=== PATIENT | male | born 1990 | race Caucasian/White ===

== ENCOUNTER 2025-04-06 14:03 | Outpatient (AMB) | payer OTHER, SELFPAY ==
--- NOTE | 2025-04-06 14:09 | A.OFFVIS_ITS ---
Intake Visit Reasons: cont headaches and abnormal MRI HPI Comments Details: The patient is a 35 year old male presenting with progressively worsening violent dizzy episodes, which began about a year ago. The first extreme episode occurred in April of this year, which prompted him to seek care. The episodes are characterized by sudden onset of vertigo, described as the entire world visually spinning, leading to a loss of balance and the need to immediately get on the floor. These episodes last for about 10-15 minutes and are associated with a sensation of the whole body overheating, sweating, nausea, photosensitivity, and difficulty thinking clearly. A witness confirms that during these events, the patient appears distressed, his eyes shift as if spinning, and his responses are initially slow and not always coherent. Following the acute vertigo, a feeling of lightheadedness and floatiness persists for several hours. The patient reports no incontinence or physical injury during the events, but does experience frequent agata vu. Associated symptoms include blurry vision, worsening memory issues with loss of train of thought, and progressing numbness in the pelvic region over the past couple of months. He also reports progressively worsening constipation and unspecified bladder issues, but denies headaches with these episodes. He does have weekly headaches, which are sometimes associated with insomnia. Past medical history is significant for a head injury with loss of consciousness before the age of [age] after falling down a flight of stone stairs. He has no known history of seizures. A brain MRI performed three months ago reportedly showed white matter buildup. His current medications include bupropion for depression, albuterol, Cymbalta, and meclizine for the dizziness. He has known allergies to amoxicillin and penicillin. 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 Review of Systems Narrative - Neurological: Reports episodes of severe vertigo with loss of balance, frequent agata vu, and occasional periods of altered awareness ( not there ). - Reports worsening memory, losing train of thought, and progressive numbness in the pelvic region. - Reports weekly headaches. - Denies olfactory or gustatory hallucinations. - Eyes: Reports blurry vision and photosensitivity, especially during dizzy episodes. - Gastrointestinal: Reports nausea during dizzy spells and progressively worsening constipation. - Genitourinary: Reports unspecified bladder issues. - Denies incontinence. - Constitutional: Reports sensation of body overheating and sweating during dizzy episodes. - Psychiatric: Reports feeling of agata vu frequently. Physical Exam Neuro Other: Mental Status: Alert and oriented to person, place, and time. Normal attention. Normal spontaneous speech, fluency, and comprehension. No obvious issues with mood and memory. Affect is appropriate. Cranial Nerves: CN II: Visual rogers full to confrontation, visual acuity intact. CN III, IV, : Pupils equal, round, reactive to light and accommodation. Extraocular movements are normal. CN V: Facial sensation is normal. CN VII: Facial movements symmetrical. CN VIII: Hearing intact to bedside conversation is normal. CN IX, X: Palate elevates symmetrically. CN XI: Shoulder shrug and head turn symmetrical. CN XII: Tongue midline without atrophy or fasciculations. Motor: Bulk and tone normal in all extremities. No significant muscle weakness in arms and legs. No drift. Reflexes: Deep tendon reflexes 2+ and symmetric. Plantar response down-going bilaterally. Coordination: [id number] and ehsu-ux-[id number] testing normal. No dysmetria. Gait and Station: No obvious gait abnormality. No ataxia or instability. Sensory: Intact to light touch, pinprick, and vibration. Romberg is negative. Extrapyramidal: Full facial expressions and blinking. No rigidity. Movements are appropriate with no tremor or abnormality. Speech: Normal; no dysarthria or tremor. Assessment & Plan Assessment & Plan (1) Seizure disorder: Code(s): G40.909 - Epilepsy, unspecified, not intractable, without status epilepticus Category: Medical (2) Migraine without aura: Code(s): G43.009 - Migraine without aura, not intractable, without status migrainosus Category: Medical Qualifiers: Intractability: not intractable Status migrainosus presence: without status migrainosus Qualified Code(s): G43.009 - Migraine without aura, not intractable, without status migrainosus Plan Impression: 1. Probably epileptic seizure disorder 2. Migraine without aura 3. Report of abnormal brain MRI though MRI CD was not here. Recommendations: 1. Reassurance and education 2. Electroencephalogram 3. Levetiracetam 500 mg twice a day 4. No driving and common sense precautions to avoid any accidents I explained to the patient that his severe dizzy episodes are most likely seizures and that he probably has epilepsy. I discussed that while his headaches are consistent with migraine, they are a separate issue and do not explain the seizures. I outlined the plan to obtain an EEG for diagnostic confirmation. I offered the option to start an anti-seizure medication immediately to control the symptoms, noting he would need to hold the dose the day before the EEG. I reassured him that epilepsy is a treatable seizure disorder, and the primary treatment is medication, not surgery. I mentioned that the findings on his MRI may be a trigger for the seizures, but the diagnosis and treatment would be the same even with a normal MRI. I provided strict instructions to avoid driving until his condition is properly diagnosed and controlled. Orders: Orders EEG Routine Today G40.909 - Epilepsy, unspecified, not intractable, without status epilepticus Medications: New levetiracetam 500 mg PO BID 180 tabs 1RF Coding Level of Care Code New Pt Level 4 (03726) Diagnoses Seizure disorder G40.909 Migraine without aura and without status migrainosus, not intractable G43.009 Intractability: not intractable Status migrainosus presence: without status migrainosus
--- OUTSIDE RECORDS SUMMARY | 2025-04-06 17:31 | XMS_ITS | Clinical Summary ---
Author Organization [address] [facility] Address [address] [place] [address] Phone Care Team Providers Care Radio Television Announcer Name Role Phone Milton Mckenzie DO Primary Care Provider [phone] Allergies Active Allergy Reactions Criticality Noted Date Comments Amoxicillin 08/24/2023 Cefaclor 08/24/2023 Penicillin 09/02/2024 Shellfish Derived High 09/02/2024 Medications buPROPion XL (WELLBUTRIN XL) 300 mg 24 hr tablet Take 1 tablet (300 mg total) by mouth 1 (one) time each day. 5 Active montelukast (SINGULAIR) 10 mg tablet Take 1 tablet (10 mg total) by mouth 1 (one) time each day. for 90 days 5 Active meclizine (ANTIVERT) 25 mg tablet Take 1 tablet (25 mg total) by mouth 3 (three) times a day if needed for dizziness or nausea. 5 Active loratadine (CLARITIN) 10 mg tablet Take 1 tablet (10 mg total) by mouth 1 (one) time each day. Active ProAir RespiClick 90 mcg/actuation aerosol powdr breath activated Inhale 1 puff by mouth every 4 (four) hours if needed (shortness of breath). 5 Active azelastine (ASTELIN) 137 mcg (0.1 %) nasal spray Administer 1 spray into each nostril 2 (two) times a day. Use in each nostril as directed Active cetirizine (ZyrTEC) 10 mg tablet Take 1 tablet (10 mg total) by mouth 1 (one) time each day. Active linaCLOtide (LINZESS) 72 mcg capsule Take 1 capsule (72 mcg total) by mouth 1 (one) time each day. 30 capsule 3 Active Social History Tobacco Use Types Packs/Day Years Used Date Smoking Tobacco: Never Smokeless Tobacco: Never Alcohol Use Standard Drinks/Week Comments Yes 0 (1 standard drink = 0.6 oz pur e alcohol) Sex and Gender Information Value Date Recorded Sex Assigned at Male 09/03/2024 3:25 PM EDT Legal Sex Male 11:47 PM EST Gender Identity Male 09/03/2024 3:25 PM EDT Sexual Orientation Straight 09/03/2024 3: 25 PM EDT Last Filed Vital Signs Vital Sign Reading Time Taken Comments Blood Pressure 112/82 09/02/2024 1:28 PM EDT Pulse 88 09/02/2024 1:28 PM EDT Temperature - - Respiratory Rate - - Oxygen Saturation 98% 09/02/2024 1:28 PM EDT Inhaled Oxygen Concentration - - Weight 79.3 kg (174 lb 12.8 oz) 09/02/2024 1:28 PM EDT Height 167.6 cm (5' 6 ) 09/02/2024 1:28 PM EDT Body Mass Index 28.21 09/02/2024 1:28 PM EDT Plan of Treatment Health Maintenance Due Date Last Done Comments Hepatitis B Vaccines (1 of 3 - 19+ 3-dose series) 2009 Pneumococcal Vaccine: Pediatrics (0 to 5 Years) and At-Risk Patients (6 to 49 Years) (1 of 2 - PCV) 2009 HPV Vaccines (1 - 3-dose SCD M series) 2017 Cholesterol Screening (Lipid Panel) 11/13/2023 HIV Screening 11/13/2023 Social Influencers of Health Screening 11/13/2023 Depression Screening 04/16/2024 COVID-19 Vaccine (4 - 2024-2 6 season) 2024 05/04/2021, 10/01/2020, 09/10/2020 Influenza Vaccine (#1) 2024 2, 03/24/2015, 01/14/2013 DTaP,Tdap,and Td Vaccines (4 - Td or Tdap) 07/01/2033 07/02/2023, 12/28/2019, 03/09/2007 RSV Immunization Adult Patients (1 - 1-dose 75+ series) 2065 Hepatitis C Screening Completed 05/20/2024 HIB Vaccines Aged Out No longer eligi ble based on patient's age to complete this topic Hepatitis A Vaccines Aged Out No long er eligible based on patient's age to complete this topic IPV Vaccines Aged Out No longer eligi ble based on patient's age to complete this topic MMR Vaccines Aged Out No longer eligi ble based on patient's age to complete this topic Meningococcal ACWY Vaccine Aged Out N o longer eligible based on patient's age to complete this topic Meningococcal B Vaccine Aged Out No l onger eligible based on patient's age to complete this topic RSV Immunization Patients Under 20 months Aged Out No longer eligible b ased on patient's age to complete this topic Varicella Vaccines Aged Out No longer eligible based on patient's age to complete this topic Procedures Procedure Name Priority Date/Time Associated Diagnosis Comments HEPATITIS C ANTIBODY Routine 05/20/2024 11:49 AM EST Polyuria Nocturia Vertigo Dizziness Insomnia from Last 3 Months or Most Recently Relevant to Health Maintenance Results * Hepatitis C antibody (05/20/2024 11:49 AM EST) Hepatitis C Antibody Negative Negative LAB CHEMISTRY METHOD 05/20/2024 5:19 PM EST [facility] Blood Venous blood specimen / Unknown Venipuncture / Unknown 05/20/2024 11:49 AM EST 05/20/2024 11:50 AM EST us Hernandez De La Fuente [employer] OPERATOR HELPER LAB BLOOD ORDERABLES Final Resul t [facility] [address] [place] [address], [place] [phone] from Last 3 Months or Most Recently Relevant to Health Maintenance Insurance [facility] PL[facility] Care Teams Radio Television Announcer Relationship Specialty Start Date End Date Milton Mckenzie DO [address] [place] [phone] PCP - General 07/04/23
--- OUTSIDE RECORDS SUMMARY | 2025-04-06 17:31 | XMS_ITS | Encounter Summary ---
Author Organization [facility] Address [address] [place] [address] Care Team Providers Care Washer Off Name Role Phone Milton Mckenzie DO Primary Care Provider [phone] Encounter Details Date Type Department Care Team (Late st Contact Info) Description 05/22/2024 Lab Requisition [facility] - Main Lab [address] [facility] [place] [address] Mary De La Fuente NP [address] [place] [phone] Insomnia, unspecified; Vertigo of central origin; Dizziness and giddiness; Nocturia; Other polyuria Social History Tobacco Use Types Packs/Day Years [...] Orientation Straight 09/03/2024 3: 25 PM EDT documented as of this encounter Plan of Treatment Not on file documented as of this encounter Procedures Procedure Name Priority Date/Time Associated Diagnosis Comments OSMOLALITY, URINE 24H Routine 05/21/2024 12:00 AM EST Insomnia, unspecified Vertigo of central origin Dizziness and giddiness Nocturia Other polyuria CHLORIDE, URINE, 24H Routine 05/21/2024 12:00 AM EST Insomnia, unspecified Vertigo of central origin Dizziness and giddiness Nocturia Other polyuria UREA NITROGEN, URINE, 24H Routine 05/21/2024 12:00 AM EST Insomnia, unspecified Vertigo of central origin Dizziness and giddiness Nocturia Other polyuria CREATININE, URINE, 24H Routine 05/21/2024 12:00 AM EST Insomnia, unspecified Vertigo of central origin Dizziness and giddiness Nocturia Other polyuria SODIUM, URINE, 24H Routine 05/21/2024 12 :00 AM EST Insomnia, unspecified Vertigo of central origin Dizziness and giddiness Nocturia Other polyuria POTASSIUM, URINE, 24H Routine 05/21/2024 12:00 AM EST Insomnia, unspecified Vertigo of central origin Dizziness and giddiness Nocturia Other polyuria GLUCOSE, URINE, 24H Routine 05/21/2024 1 2:00 AM EST Insomnia, unspecified Vertigo of central origin Dizziness and giddiness Nocturia Other polyuria documented in this encounter Results * Urea nitrogen, urine, 24H (05/21/2024 12:00 AM EST) Urea Nitrogen, 24H Ur 11 7 - 16 g/24 hr LAB CHEMISTRY METHOD 05/22/2024 12:17 PM [facility] Urea Nitrogen, Ur 367 mg/dL LAB CHEMISTRY METHOD 05/22/2024 12:17 PM [facility] Urine Volume 2,900 mL LAB CHEMISTRY METHOD 05/22/2024 12:17 PM [facility] Collection Interval, Ur 24 hr LAB CHEMISTRY METHOD 05/22/2024 12:17 PM [facility] Urine Urine specimen from urethra / Unknown 05/21/2024 05/22/2024 11:20 AM EST us Hernandez De La Fuente CHECK WRITING MACHINE OPERATOR LAB URINE ORDERABLES Final Resul t [facility] [address] [place] [address], [place] [phone] * (ABNORMAL) Osmolality, urine 24h (05/21/2024 12:00 AM EST) Osmolality, Urine, 24 hour 275(L) 500 - 800 mOsm/kg LAB CHEMISTRY METHOD 05/22/2024 12:34 PM EST [facility] Urine Volume 2,900 mL LAB CHEMISTRY METHOD 05/22/2024 12:34 PM [facility] Collection Interval, Ur 24 hr LAB CHEMISTRY METHOD 05/22/2024 12:34 PM [facility] Urine Urine specimen from urethra / Unknown 05/21/2024 05/22/2024 11:20 AM EST us Hernandez De La Fuente CHECK WRITING MACHINE OPERATOR LAB URINE ORDERABLES Final Resul t Performing Organization Address [facility] de Phone Number [facility] [address] [place] [address], [place] [phone] * Glucose, urine, 24H (05/21/2024 12:00 AM EST) Glucose, Ur 6 mg/dL LAB CHEMISTRY METHOD 05/22/2024 12:17 PM [facility] Glucose, 24H Ur 174 0 - 250 mg/24 hr LAB CHEMISTRY METHOD 05/22/2024 12:17 PM [facility] Urine Volume 2,900 mL LAB CHEMISTRY METHOD 05/22/2024 12:17 PM [facility] Collection Interval, Ur 24 hr LAB CHEMISTRY METHOD 05/22/2024 12:17 PM [facility] Urine Urine specimen from urethra / Unknown 05/21/2024 05/22/2024 11:20 AM EST us Hernandez De La Fuente CHECK WRITING MACHINE OPERATOR LAB URINE ORDERABLES Final Resul t Performing Organization Address [facility]/ZIP Co de Phone Number [facility] [address] [place] [address], [place] [phone] * Chloride, urine, 24H (05/21/2024 12:00 AM EST) Chloride, Ur 33 mmol/L LAB CHEMISTRY METHOD 05/22/2024 12:17 PM EST [facility] Chloride, 24H Ur 96 75 - 200 mmol/24 hr LAB CHEMISTRY METHOD 05/22/2024 12:17 PM [facility] Urine Volume 2,900 mL LAB CHEMISTRY METHOD 05/22/2024 12:17 PM [facility] Collection Interval, Ur 24 hr LAB CHEMISTRY METHOD 05/22/2024 12:17 PM [facility] Urine Urine specimen from urethra / Unknown 05/21/2024 05/22/2024 11:20 AM EST us Hernandez De La Fuente CHECK WRITING MACHINE OPERATOR LAB URINE ORDERABLES Final Resul t Performing Organization Address [facility] Co de Phone Number [facility] [address] [place] [address], [place] [phone] * Sodium, urine, 24H (05/21/2024 12:00 AM EST) Sodium, Ur 46 mmol/L LAB CHEMISTRY METHOD 05/22/2024 12:17 PM [facility] Sodium, 24H Ur 133 40 - 220 mmol/24 hr LAB CHEMISTRY METHOD 05/22/2024 12:17 PM [facility] Urine Volume 2,900 mL LAB CHEMISTRY METHOD 05/22/2024 12:17 PM [facility] Collection Interval, Ur 24 hr LAB CHEMISTRY METHOD 05/22/2024 12:17 PM [facility] Urine Urine specimen from urethra / Unknown 05/21/2024 05/22/2024 11:20 AM EST us Mary De La Fuente CHECK WRITING MACHINE OPERATOR LAB URINE ORDERABLES Final Resul t [facility] [address] [place] [address], [place] [phone] * Potassium, urine, 24H (05/21/2024 12:00 AM EST) Potassium, Ur 14.0 mmol/L LAB CHEMISTRY METHOD 05/22/2024 12:17 PM [facility] Potassium, 24H Ur 40.6 25.0 - 120.0 mmol/24 hr LAB CHEMISTRY METHOD 05/22/2024 12:17 PM [facility] Urine Volume 2,900 mL LAB CHEMISTRY METHOD 05/22/2024 12:17 PM [facility] Collection Interval, Ur 24 hr LAB CHEMISTRY METHOD 05/22/2024 12:17 PM [facility] Urine Urine specimen from urethra / Unknown 05/21/2024 05/22/2024 11:20 AM EST Mary De La Fuente LAB URINE ORDERABLES Final Resul t Performing Organization Address [facility]/ZIP Co de Phone Number [facility] [address] [place] [address], [place] [phone] * Creatinine, urine, 24H (05/21/2024 12:00 AM EST) Creatinine, Urine 64.0 mg/dL LAB CHEMISTRY METHOD 05/22/2024 12:17 PM [facility] Creatinine, 24H Ur 1,856 800 - 2,000 mg/24 Hr LAB CHEMISTRY METHOD 05/22/2024 12:17 PM [facility] Urine Volume 2,900 mL LAB CHEMISTRY METHOD 05/22/2024 12:17 PM [facility] Collection Interval, Ur 24 hr LAB CHEMISTRY METHOD 05/22/2024 12:17 PM EST [facility] Urine Urine specimen from urethra / Unknown 05/21/2024 05/22/2024 11:20 AM EST us Hernandez De La Fuente CHECK WRITING MACHINE OPERATOR LAB URINE ORDERABLES Final Resul t [facility] [address] [place] [address], documented in this encounter Visit Diagnoses Diagnosis Insomnia, unspecified Vertigo of central origin Dizziness and giddiness Nocturia Other polyuria documented in this encounter Care Teams Washer Off Relationship Specialty Start Date End Date Milton Mckenzie DO [address] [place] [phone] PCP - General 07/04/23 documented as of this encounter
== END 2025-04-06 14:37 | disposition home or self-care (01) ==
LOC: HO.HSM 14:03
PROVIDERS: Visit Provider Psychiatry & Neurology Neurology
DX: G40.909 Epilepsy, unspecified, not intractable, without status epilepticus (principal); G43.009 Migraine without aura, not intractable, without status migrainosus
CPT/HCPCS: 99204

== ENCOUNTER → 2025-04-06 14:03 | Outpatient (BNVA) | payer OTHER, SELFPAY | PROVIDERS: Visit Provider Psychiatry & Neurology Neurology | DX: G40.909 Epilepsy, unspecified, not intractable, without status epilepticus (principal); G43.009 Migraine without aura, not intractable, without status migrainosus | CPT/HCPCS: 99202 ==